=== PATIENT | female | born 1955 | race Caucasian/White ===

== ENCOUNTER → 2017-03-31 09:05 | Outpatient (CLI) | payer BC, SELFPAY ==
[2017-03-31 10:56] LABS: Albumin, Serum 3.5 g/dL (3.4-5.0); BUN 15 mg/dL (7-18); BUN/Creat Ratio 12.7 RATIO (10-20); Calcium,Total 8.6 mg/dL (8.5-10.1); Chloride 106 mmol/L (98-107); Creatinine, Serum 1.18 mg/dL (0.55-1.02); EST Glomerular Filtration Rate 50 mL/min (>60); Est Glom Filt Rate - Afr Amer 60 mL/min (>60); Glucose 80 mg/dL (70-110); Phosphorus 3.4 mg/dL (2.5-4.9); Sodium Level 140 mmol/L (136-145)
[2017-03-31 10:58] LABS: PTHIN 109.4 pg/mL (18.4-80.1)
[2017-03-31 11:49] LABS: 24 Hour Urine Protein 198.4 mg/24HR (<150 MG/24HR); 24HR. UA Prot. Total Volume 1725 mL; 24HR. Urine Creatinine 1.22 g/24 HR (0.70-1.90); Urine Protein (24 Hour) 11.5 mg/dL (<11.9)
== END ==
DX: I12.9 Hypertensive chronic kidney disease with stage 1 through stage 4 chronic kidney disease, or unspecified chronic kidney disease (principal); N18.3 Chronic kidney disease, stage 3 (moderate)
CPT/HCPCS: 36415; 80069; 82330; 82570; 83970; 84156

== ENCOUNTER → 2017-06-17 10:48 | Outpatient (CLI) | payer BC, SELFPAY | DX: I12.9 Hypertensive chronic kidney disease with stage 1 through stage 4 chronic kidney disease, or unspecified chronic kidney disease (principal); N18.3 Chronic kidney disease, stage 3 (moderate) ==

== ENCOUNTER 2017-06-30 11:30 | Outpatient (RCR) | payer BC, SELFPAY ==
--- NOTE | 2017-03-03 16:56 | HP.PTEVAL_ITS ---
Patient's Visit Information SYED HARDWICK is a 61 year old F referred to Physical Therapy by Out of Town Doctor with a diagnosis of Weakness. Date of Evaluation: 03/03/17 Physical Therapist: Lori Jamison - Visit Plan Frequency: 2x /Week Duration: 6 Weeks Plan: Focus on LE and core s/s - Subjective Subjective: Patient reports that she was in the hospital for about 3 weeks at the end of Jan- she was in the ICU for 10 days with kidney issues which led to sepsis. She was very sick and for awhile her MD didn't know if she was going to pull through. She feels now that she is very weak and has a hard to getting all of her strength and endurance back. She is trying to walk as much as she can but can hardly get her work done. Her MD wants her back in therapy. She is having knee and back pain that is ongoing. She is planning to have a total knee replacement put in her right knee EMMANUEL. She is going to have a team of md' s taking over her care through her primary care including a satellite installation technician. He plans a 24 hour urine study dominick will help to process why she is having so many problems. - Objective Posture: FH, RS, Increased kyphosis. Gait: antalgic- uses straight cane- slow agatha and poor heel/toe pattern. SLS: unable but can WS. Stairs: non recip with 2 HR. HR/TR: able. ROM: WFL. Strength: Ankle: 5/5, Knee: 4+/5. Hip: 4-/ 5 throughout Core: poor. Endurance: poor - Goals Goal 1:: Patient will be I with HEP and progression Goal Time Frame: 4-6 Weeks Goal 2:: Patient will ambualte >300 feet with a normalized gait pattern and LRD Goal Time Frame: 4-6 Weeks Goal 3:: Patient will asc/desc 8 recip with 1 HR Goal Time Frame: 4-6 Weeks Goal 4:: Patient willd emo 4+/5 throughout Goal Time Frame: 4-6 Weeks Goal 5:: Patient will maitain proper posture t/o tx session to demo increased core s/s Goal Time Frame: 4-6 Weeks - Rehabilitation Potential Physical Therapy Diagnosis: patient presents with hypomobility- she has debility following hospital stay Rehabilitation Potential: Fair - Anticipated Interventions Patient/Client Instruction: Educate patient on: Benefits of Fitness Program For the Purpose of:: To increase tolerance to activity/condition/position Therapeutic Exercise to Include: Strength training, Endurance training, Balance training, Coordination, Agility training, Body mechanics, Postural training, Flexibilty training, Gait and locomotor training, Dynamic Lumbar Stabilization, Scapular Strength/Stabilization For the Purpose of:: To improve muscle performance and motor function Thank you for the opportunity to evaluate your patient. For Medicare and Medicare HMO plans, please review the plan of care and approve it. It will need to be FAXED BACK to us at [phone] for Medicare purposes. Please let me know if there are questions or concerns regarding this plan of care. Physician Signature: Date:
--- NOTE | 2017-06-30 11:44 | HP.PTDCSUM_ITS ---
HP - PT D/C Summary It has been my pleasure to treat SYED HARDWICK under orders from DAVID CALIXTO, for the diagnosis of Weakness for a total of 15 visit(s). Discharge Date: Please see the following information for a summary of their discharge status. - Subjective Subjective: End of Apr Synvist injections- can now walk without a cane and has less pain. She fell on Wednesday- went to see Dr. Hermosillo and he is fitting her for a brace- [employer] will get her the brace. She will have a cortisone shot in July then she can get another shot October. Tested herself at [employer] [facility]- the next day [employer] then next day at [facility] then could not walk for 2 days. Swollen and painful. Uses the compression 1-2x a day due to lymphedema, pain and knee in general. 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 - Pain RIGHT KNEE Pain Intensity (Out of 10): 5 - Objective Objective/Function: Posture: Fh, RS. Gait: no AD- mild deviation with decreased stride length and increased DELIA. SLS: WS with UE A. HR/TR: able. ROM: wnl. Strength: 4+/5 throughout Core: fair plus - Goals Goal 1:: Patient will be I with HEP and progression Goal Progress: Goal Met Goal 2:: Patient will ambualte >300 feet with a normalized gait pattern and LRD Goal Progress: Progressing Goal 3:: Patient will asc/desc 8 recip with 1 HR Goal Progress: Progressing Goal 4:: Patient willd emo 4+/5 throughout Goal Progress: Goal Met Goal 5:: Patient will maitain proper posture t/o tx session to demo increased core s/s Goal Progress: Progressing - Plan Plan: Discharge to I HEP- gym and home - D/C Information If there are questions or concerns regarding this patient's physical therapy, please feel free to call me at [phone]. Thank you for the referral of this patient. Sincerely, Lori Jamison
== END 2017-06-30 19:00 | disposition home or self-care (01) ==
LOC: PT 11:30
DX: R53.1 Weakness (principal)
CPT/HCPCS: 97110; 97162; 97530

== ENCOUNTER 2018-11-21 09:00 | Outpatient (RCR) | payer BC, SELFPAY ==
--- NOTE | 2018-11-21 12:55 | HP.PTEVAL_ITS ---
Patient's Visit Information SYED HARDWICK is a 63 year old F referred to Physical Therapy by Agapito Anderson MD with a diagnosis of Low back pain. Date of Evaluation: 11/21/18 Physical Therapist: Ollie Kelly DPT - Visit Plan Frequency: 2x /Week Duration: 4 Weeks Plan: Start with extension exercises, piriformis stretching, hip flexor stretching, Add in core stability exercises in neutral spine - Subjective Findings: Pt. 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 Pt. reprots picking up her granddaughter resultsing in low back pain on left side ~6 weeks ago. Her back pain was bad for ~2 days then resulted in thigh pain. Pt. reports increased pain with pressure to this region. She reports no longer having any back pain. Pt. is concerned as her is having surgery next week on his back and she is having a R TKA in Nov. Pt. reports having difficulty sleeping as well. Pt. reports anything that touches her L leg it is very tender. Pt. is hopefu to reduce symptoms in order to get back to all recreational and household activities without limitations. - Pain L thigh Pain Intensity (Out of 10): 6 Pain Intensity Range: 4, 10 - Objective POSTURE: Pt. has flexed posture in stance. Overal slouched positoning. Posteror pelvic tilt postioning. Pt. has normal lateral wt. shfiting. PALPATION: PT. has increased tenderness at L piriformis, L erector spine. Pt. also has increased sensitivity througout L thigh (medial aspect) and L calf (medial aspect). NEURO: normal DTR bilaterally, but has hypersensitity to ligth touch of medial aspect of L LE. ROM: Lumbar Spine: flexion min/nil loss increase NW, ext min /mod loss decrease better, SB min loss NE bilat, rotation min loss bilat NE. Pt. has normal HS length bilaterally, tight L hip ER. Normal rest of hip ROM. MMT: RLE- ankle 5/5 throughout; knee- ext 4/5, flexion 4/5; hip- flexon 4/5, abd 4/5, ext 4/5. LLE- ankle 5/5 throughout; knee- ext 5/5, flexion 5/5; hip- flexion 4/5, abd 4/5, ext 4/5. No pain with all testing. GAIT: Pt. ambulates with SPC due to R knee pain and feeling of imbalance. Pt. has increased lateral sway and flexed posture with gait. - Special Tests L/S Slump test left side: Negative L/S Slump test right side: Negative L/S Left Straight Leg Raise: Negative L/S Right Straight Leg Raise: Negative L/S Left Femoral Nerve Tension: Positive L/S Right Femoral Nerve Tension: Negative Lumbar Standing: Flexion - Mechanical Response: No effect Lumbar Standing: Flexion - Symptoms During Testing: Increases Lumbar Standing: Flexion - Symptoms After Testing: No worse Lumbar Standing: Extension - Mechanical Response: No effect Lumbar Standing: Extension - Symptoms During Testing: Decreases Lumbar Standing: Extension - Symptoms After Testing: Better Lumbar Standing: Right Side Glides - Mechanical Response: No effect Lumbar Standing: Right Side [place] - Symptoms During Testing: No effect Lumbar Standing: Right Side [place] - Symptoms After Testing: No effect Lumbar Standing: Left Side [place] - Mechanical Response: No effect Lumbar Standing: Left Side [place] - Symptoms During Testing: No effect Lumbar Standing: Left Side [place] - Symptoms After Testing: No effect - Goals Goal 1:: Pt. to be I with HEP. Goal Time Frame: 4-6 Weeks Goal 2:: Pt. to have increased lumbar ROM by 25% in all directions without increase in symptoms. Goal Time Frame: 4-6 Weeks Goal 3:: Pt. to have reduced L LE hypersensity by 50%. Goal Time Frame: 4-6 Weeks Goal 4:: Pt. to sleep without increase in symptoms. Goal Time Frame: 4-6 Weeks Goal 5:: Pt. to have increased core strength by 1/2 grade allowing for increased stability with all functional mobility. Goal Time Frame: 4-6 Weeks - Rehabilitation Potential Physical Therapy Diagnosis: Pt. has signs and symptoms consistent with radiating low back pain. Pt. had hypersensitivity in her L leg, especially the medial aspected. Pt. did have a redction in symptoms with extension exercises. Rehabilitation Potential: Good - Anticipated Interventions Patient/Client Instruction: Educate patient on: Condition, Plan of Care, Risk Factors, Benefits of Fitness Program For the Purpose of:: To foster healthy habits, To improve decision making, To facilitate caregiver knowledge, To improve self management, To prevent re- injury, To improve ability to perform tasks related to life management Therapeutic Exercise to Include: Strength training, Balance training, Body mechanics, Postural training, Flexibilty training, Active ROM For the Purpose of:: To decrease pain, To increase ROM, To improve muscle p erformance and motor function, To improve ability to perform ADL's, To increase tolerance to activity/condition/position, To decrease level of supervision to perform tasks, To improve ability of physical actions for home/community/work/leisure, To improve gait and locomotor functions, To improve health of tissue, To increase flexibility/ROM IF ES: Yes Cryotherapy (ice pack, ice massage): Yes For the Purpose of:: To decrease pain, To decrease swelling/inflammation, To increase ROM, To improve nutrient delivery to tissue Thank you for the opportunity to evaluate your patient. For Medicare and Medicare HMO plans, please review the plan of care and approve it. It will need to be FAXED BACK to us at [phone] for Medicare purposes. For Medicare only, by signing this I certify the plan of care. Please let me know if there are questions or concerns regarding this plan of care. Physician Signature: Date:
--- NOTE | 2019-01-02 09:12 | HP.PTDCNRP_ITS ---
HP - Discharge Summary (1) - Patient Information SYED HARDWICK was seen in my office for initial evaluation on 11/21/18. The following Plan of Care was established for this patient: Initial Frequency: 2x /Week Initial Duration: 4 Weeks - Anticipated Interventions Patient/Client Instruction: Educate patient on: Condition, Plan of Care, Risk Factors, Benefits of Fitness Program For the Purpose of:: To foster healthy habits, To improve decision making, To facilitate caregiver knowledge, To improve self management, To prevent re- injury, To improve ability to perform tasks related to life management Therapeutic Exercise to Include: Strength training, Balance training, Body mechanics, Postural training, Flexibilty training, Active ROM For the Purpose of:: To decrease pain, To increase ROM, To improve muscle performance and motor function, To improve ability to perform ADL's, To increase tolerance to activity/condition/position, To decrease level of supervision to perform tasks, To improve ability of physical actions for home/community/work/leisure, To improve gait and locomotor functions, To improve health of tissue, To increase flexibility/ROM IF ES: Yes Cryotherapy (ice pack, ice massage): Yes For the Purpose of:: To decrease pain, To decrease swelling/inflammation, To increase ROM, To improve nutrient delivery to tissue This patient was last seen in our office 11/21/18. Pertinent comments regarding their Physical therapy will appear below: Pt. was seen for her initial evaluation for L sided low back pain. Pt. was no longer having pain and has been doing well with her exercises. Pt. will be DC from PT at this point in time. At this point I will be discontinuing this patient from physical therapy. I would be happy to see this patient again in the future if found appropriate by the physician. Thank you! Ollie Kelly, YOUT
== END 2018-11-21 19:00 | disposition home or self-care (01) ==
LOC: PT 09:00
PROVIDERS: Family Provider Family Medicine; PCP Family Medicine; Referring Provider Family Medicine; Visit Provider Family Medicine
DX: M79.605 Pain in left leg (principal); M54.16 Radiculopathy, lumbar region; E66.01 Morbid (severe) obesity due to excess calories; Z68.41 Body mass index [BMI] 40.0-44.9, adult
CPT/HCPCS: 97161

== ENCOUNTER 2019-07-05 10:00 | Outpatient (RCR) | payer BC, SELFPAY ==
--- NOTE | 2019-01-23 10:31 | HP.PTEVAL_ITS ---
Patient's Visit Information SYED HARDWICK is a 63 year old F referred to Physical Therapy by Sanya Mora with a diagnosis of R TKA. Date of Evaluation: 01/23/19 Physical Therapist: Ollie Kelly DPT - Visit Plan Frequency: 3x /Week Duration: 4 Weeks Plan: Start wwith R knee ROM, focus on TKE and progressing flexion. Gait progression, functional movments. Add in light isometric strengthening progressing as tolerated. - Subjective Findings: Pt. is here today for her initial evaluation with diagnosis of R TKA. DOS: 01/19/19. Pt reports being okay, but is still experiencing high levels of pain, but as expected. Pt. arrives today without her compression stockings, but reports wearing them x21+ hours per day. Pt. denies N/T, no calf pain, no blurred vision. Pt. reprots she is getting around her house well with her walker. Pt. is sleeping in her bed with good tolerance. She is doing her exercises x3 per day. Pt. is using a FWW properly. Pt. is to follow up with her physician in 4 weeks. Pt. is hopeful to get back to all recreational and walking without limitations. - Pain R knee Pain Intensity (Out of 10): 8 Pain Intensity Range: 5, 9 - Objective POSTURE: Pt. has flexed posture, increased wt. through her UEs on ther walker, lacking slight TKE on RLE in stance. PALPATION: Pt. has healing incision. He bandage. No signs of draining. Pt. has increased redness around her incision, but as expected. She does have marked edema throughout R knee, non pitting. Pt. has no pain along calf, negative homans sign. NEURO: Pt. has nromal sensation to bilateral LEs. Pt. has 2+ achilles DTR bilaterally. ROM: L knee: 0-0-115deg. R knee 0-8-86deg. Pt. reprots pain at end ranges of motion. pt. has tight HS bilaterally. MMT: LLE- 5/5 throughout ankle and knee; hip- 4/5 throughout. RLE- ankle 5/5 throughout; knee- SLR with slight extensor lag, patient is able to complete LAQ with close to full ROM; knee flexion 4/5; hip- 4-/5 throughout. Core strength- poor. GAIT: Pt. ambulates with FWW with decreased step length bilaterally. Lacks TKE on RLE. Heavy use of FWW, especially during R stance phase. STAIRS: Step to pattern laoding LLE only. - Goals Goal 1:: Pt. to be I with HEP. Goal Time Frame: 4-6 Weeks Goal 2:: Pt. to have increased R knee ROM to 0-0-120deg without increase increase in symptoms. Goal Time Frame: 4-6 Weeks Goal 3:: Pt. to ambulate without AD uinlimited distances with normal gait pattern without increase in symptoms. Goal Time Frame: 4-6 Weeks Goal 4:: Pt. to sleep throughout the night without increase in symptoms. Goal Time Frame: 4-6 Weeks Goal 5:: Pt. to negotiate 1 flight of steps with 1 HR with reciprocal pattern without increase in symptoms. Goal Time Frame: 4-6 Weeks Goal 6:: Pt. to have atleast 4+/5 strength in RLE. Goal Time Frame: 4-6 Weeks - Rehabilitation Potential Physical Therapy Diagnosis: Pt. has signs and symptoms consistent with R TKA. Pt. has subsequent increased edema, hypomobility, weakness, increased pain, and difficulty with walking. Pt. would benefit from PT to address above limitations progress back to all walking and recreational activities without limitations. Rehabilitation Potential: Excellent - Anticipated Interventions Patient/Client Instruction: Educate patient on: Condition, Plan of Care, Risk Factors, Benefits of Fitness Program For the Purpose of:: To improve health and function, To foster healthy habits, To improve decision making, To facilitate caregiver knowledge, To improve self management, To prevent re-injury, To improve ability to perform tasks related to life management, To improve tolerance to ADL's Therapeutic Exercise to Include: Strength training, Power training, Body mechanics, Postural training, Flexibilty training, Gait and locomotor training, Passive ROM, Active ROM For the Purpose of:: To decrease pain, To decrease swelling/inflammation, To increase ROM, To improve nutrient delivery to tissue, To increase oxygenation perfusion, To improve muscle performance and motor function, To improve ability to perform ADL's, To improve gait and locomotor functions, To improve health of tissue, To decrease soft tissue restriction Cryotherapy (ice pack, ice massage): Yes Vasopneumatic device: Yes For the Purpose of:: To decrease pain, To decrease swelling/inflammation Thank you for the opportunity to evaluate your patient. For Medicare and Medicare HMO plans, please review the plan of care and approve it. It will need to be FAXED BACK to us at [phone] for Medicare purposes. For Medicare only, by signing this I certify the plan of care. Please let me know if there are questions or concerns regarding this plan of care. Physician Signature: Date:
--- NOTE | 2019-02-20 08:23 | HP.PTREVAL ---
Sanya Mora, It has been my pleasure to treat SYED HARDWICK over the last 11 visits for R TKA. Please see the progress note below for an update on the physical therapy plan of care! Subjective: Pt. reports I am feeling a lot better, compared to what I was. Pt. has started taking prednisone and is doign better. She reports increased tolerance to exercises and stretching. Objective/Function: ROM: AROM 0-4-104deg. PROM 0-2-108deg. Pt. has increased pain and tightness at end ranges of motion. MMT: generally 4/5 throughout. PT. has improved scar healing. No signs of infection. Worked on walking with cane this date. Pt. did very well. Pt. is starting to progress better now that she is tolerating HEP and stretching better. Pt. to follow up with physician next week. Plan Plan: Send Progress note with pt next visit. Continue with R knee ROM, focus on TKE and progressing flexion. Gait progression, functional movments. Add in light isometric strengthening progressing as tolerated. Goals Goal 1:: Pt. to be I with HEP. Goal Time Frame: 4-6 Weeks Goal 2:: Pt. to have increased R knee ROM to 0-0-120deg without increase increase in symptoms. Goal Time Frame: 4-6 Weeks Goal 3:: Pt. to ambulate without AD uinlimited distances with normal gait pattern without increase in symptoms. Goal Time Frame: 4-6 Weeks Goal 4:: Pt. to sleep throughout the night without increase in symptoms. Goal Time Frame: 4-6 Weeks Goal 5:: Pt. to negotiate 1 flight of steps with 1 HR with reciprocal pattern without increase in symptoms. Goal Time Frame: 4-6 Weeks Goal 6:: Pt. to have atleast 4+/5 strength in RLE. Goal Time Frame: 4-6 Weeks Anticipated Interventions Patient/Client Instruction: Educate patient on: Condition, Plan of Care, Risk Factors, Benefits of Fitness Program For the Purpose of:: To improve health and function, To foster healthy habits, To improve decision making, To facilitate caregiver knowledge, To improve self management, To prevent re-injury, To improve ability to perform tasks related to life management, To improve tolerance to ADL's Therapeutic Exercise to Include: Strength training, Power training, Body mechanics, Postural training, Flexibilty training, Gait and locomotor training, Passive ROM, Active ROM For the Purpose of:: To decrease pain, To decrease swelling/inflammation, To increase ROM, To improve nutrient delivery to tissue, To increase oxygenation perfusion, To improve muscle performance and motor function, To improve ability to perform ADL's, To improve gait and locomotor functions, To improve health of tissue, To decrease soft tissue restriction Cryotherapy (ice pack, ice massage): Yes Vasopneumatic device: Yes For the Purpose of:: To decrease pain, To decrease swelling/inflammation Please do not hesitate to contact me at [phone] by phone or if you have questions or concerns regarding this new plan of care! Sincerely, YOU ReneT
--- NOTE | 2019-03-20 09:57 | HP.PTREVAL_ITS ---
Sanya Mora, It has been my pleasure to treat SYED HARDWICK over the last 17 visits for R TKA. Please see the progress note below for an update on the physical therapy plan of care! Subjective: Pt. reports she is doing much, much better. Pt. is now walking without cane, and overall getting around much better. Pt. reports ahving 2/10 pain today I just feel really stiff today.' She reports beign HEP compliant without issues. Pt. is getting back to some normal daily activities, but still has to take frequent breaks due to fatigue and soreness. Objective/Function: Re assessment x15' ROM: Pt. has 0-0-104deg today. Pt. is improving with flexion, but I would like her to have a bit more allowing for increased ease with functional activities. MMT: 4+/5 throughout RLE. APPEARANCE: Pt. does have increased scarring superior to patella, but has improve with patient consistent scar massage. I would like her to work on knee flexion ROM, stability with stairs and increasing hip stability allowing for increased stability with gait and functional mobility. 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 I talked with her about medial joint pain and healing process after surgery. Increasing hip ER will add stress to Medial joint line, especial if she is limited with hip ER while attempting to tie her shoes. Plan Plan: Cont. x2 per week for 2-3 weeks working on flexion, gait/stairs, RLE stre ngthening (hip strengthening). Functional strengthening/mobility. Goals Goal 1:: Pt. to be I with HEP. Goal Time Frame: 4-6 Weeks Goal Progress: Goal Met Goal 2:: Pt. to have increased R knee ROM to 0-0-120deg without increase increase in symptoms. Goal Time Frame: 4-6 Weeks Goal Progress: Progressing Goal 3:: Pt. to ambulate without AD uinlimited distances with normal gait pattern without increase in symptoms. Goal Time Frame: 4-6 Weeks Goal Progress: Progressing Goal 4:: Pt. to sleep throughout the night without increase in symptoms. Goal Time Frame: 4-6 Weeks Goal Progress: Goal Met Goal 5:: Pt. to negotiate 1 flight of steps with 1 HR with reciprocal pattern without increase in symptoms. Goal Time Frame: 4-6 Weeks Goal Progress: Progressing Goal 6:: Pt. to have atleast 4+/5 strength in RLE. Goal Time Frame: 4-6 Weeks Goal Progress: Progressing Anticipated Interventions Patient/Client Instruction: Educate patient on: Condition, Plan of Care, Risk Factors, Benefits of Fitness Program For the Purpose of:: To improve health and function, To foster healthy habits, To improve decision making, To facilitate caregiver knowledge, To improve self management, To prevent re-injury, To improve ability to perform tasks related to life management, To improve tolerance to ADL's Therapeutic Exercise to Include: Strength training, Power training, Body mechanics, Postural training, Flexibilty training, Gait and locomotor training, Passive ROM, Active ROM For the Purpose of:: To decrease pain, To decrease swelling/inflammation, To increase ROM, To improve nutrient delivery to tissue, To increase oxygenation perfusion, To improve muscle performance and motor function, To improve ability to perform ADL's, To improve gait and locomotor functions, To improve health of tissue, To decrease soft tissue restriction Cryotherapy (ice pack, ice massage): Yes Vasopneumatic device: Yes For the Purpose of:: To decrease pain, To decrease swelling/inflammation Please do not hesitate to contact me at [phone] by phone or if you have questions or concerns regarding this new plan of care! Sincerely, Ollie Kelly DPT
--- NOTE | 2019-04-24 12:53 | HP.PTREVAL ---
Sanya Mora, It has been my pleasure to treat SYED HARDWICK over the last 27 visits for R TKA. Please see the progress note below for an update on the physical therapy plan of care! Subjective: Pt. reprots overall her knee is doing much better. Pt. reprots having some difficulty with balance adn walking pattern. Pt. reprots talking to her PCP who recommended that she continue with PT with focus on balance. Objective/Function: ROM 0-0-115deg. MMT: 5/5 throuhgout, except hip abduction 4/5. Bilateral ankle weakness 4+/5 throughout. FGA- 22/30 difficulty with narrow DELIA and with eyes closes. She is close to being I with gym program for BLE strengthening. She is negotiating stairs with reciprocal pattern but difficult for eccentric lowering. Pt. is overall doing very well with her knee. Pt. did follow up with her PCP who would like her to work on balance now that her knee is doing better. Plan Plan: Extended POC x2 per week for 3 weeks with focus on indepedent program for gym with BLE strengthening. Add in balance/proprioception, SLS, eyes closed, dynamic balance exercises. Goals Goal 1:: Pt. to be I with HEP. Goal Time Frame: 4-6 Weeks Goal Progress: Goal Met Goal 2:: Pt. to have increased R knee ROM to 0-0-120deg without increase increase in symptoms. Goal Time Frame: 4-6 Weeks Goal Progress: Progressing Goal 3:: Pt. to ambulate without AD uinlimited distances with normal gait pattern without increase in symptoms. Goal Time Frame: 4-6 Weeks Goal Progress: Progressing Goal 4:: Pt. to sleep throughout the night without increase in symptoms. (NEW GOAL: 04/24/19- Patient to have increased FGA to 25/30 indicating reduced risk for future falls) Goal Time Frame: 4-6 Weeks Goal Progress: Progressing Goal 5:: Pt. to negotiate 1 flight of steps with 1 HR with reciprocal pattern without increase in symptoms. Goal Time Frame: 4-6 Weeks Goal Progress: Progressing Goal 6:: Pt. to have atleast 4+/5 strength in RLE. Goal Time Frame: 4-6 Weeks Goal Progress: Goal Met Anticipated Interventions Patient/Client Instruction: Educate patient on: Condition, Plan of Care, Risk Factors, Benefits of Fitness Program For the Purpose of:: To improve health and function, To foster healthy habits, To improve decision making, To facilitate caregiver knowledge, To improve self management, To prevent re-injury, To improve ability to perform tasks related to life management, To improve tolerance to ADL's Therapeutic Exercise to Include: Strength training, Power training, Body mechanics, Postural training, Flexibilty training, Gait and locomotor training, Passive ROM, Active ROM For the Purpose of:: To decrease pain, To decrease swelling/inflammation, To increase ROM, To improve nutrient delivery to tissue, To increase oxygenation perfusion, To improve muscle performance and motor function, To improve ability to perform ADL's, To improve gait and locomotor functions, To improve health of tissue, To decrease soft tissue restriction Cryotherapy (ice pack, ice massage): Yes Vasopneumatic device: Yes For the Purpose of:: To decrease pain, To decrease swelling/inflammation Please do not hesitate to contact me at [phone] by phone or if you have questions or concerns regarding this new plan of care! Sincerely, YOU ReneT
--- NOTE | 2019-06-30 09:28 | HP.PTREVAL ---
Sanya Mora, It has been my pleasure to treat SYED HARDWICK over the last 33 visits for R TKA. Please see the progress note below for an update on the physical therapy plan of care! Subjective: Pt. has been off of PT due to [place] virus. PT. reports that she feels like she has become stiff and feels like her balance has worsened. Pt. reports also being on 10mg of prednisone every other day by her PCP, which might be helping her symptoms. Objective/Function: Pt. is doing well with her R knee joint. ROM 0-0-113deg. Tenderness noted with end range fleixon and extension, she appears to have a component of tight/tender musculature of R quad. MMT: Pt. has good strength with MMT throughotu BLEs, she does have some mild functional strength weakness with descending steps. GAIT: Pt. is nicki to ambulate with normal pattern with good TKE and flexion during swing phase. Pt. does have some balance inconsistencies resulting in stepping stratagies to self correct balance. She does not want to use a cane. STAIRS: Pt.is able to complete with BHR with reciprocal pattern, mild icnrease in B knee pain with descending, noted functional weakness with controlled descent on LLE. BALANCE: FGA very challneged with eyes closed and narrow DELIA. Plan Plan: Pt. was off from PT due to pandemic. Pt. has been fairly sedentary since pandemic and has not been compliant with exercises. Pt. presents with descent strength, and fairly good ROM. Pt. is concerned about her balance and reports not feeling good with her stability. She is hopeful to increase functional strength and balance in order get to recreational walking. Pick back up with functional strengthening, Stability/balance on uneven surfaces, dynamic gait.. PRogress HEP. Goals Goal 1:: Pt. to be I with HEP. Goal Time Frame: 4-6 Weeks Goal Progress: Goal Met Goal 2:: Pt. to have increased R knee ROM to 0-0-120deg without increase increase in symptoms. Goal Time Frame: 4-6 Weeks Goal Progress: Progressing Goal 3:: Pt. to ambulate without AD uinlimited distances with normal gait pattern without increase in symptoms. Goal Time Frame: 4-6 Weeks Goal Progress: Goal Met Goal 4:: Pt. to sleep throughout the night without increase in symptoms. (NEW GOAL: 04/24/19- Patient to have increased FGA to 25/30 indicating reduced risk for future falls) Goal Time Frame: 4-6 Weeks Goal Progress: Progressing Goal 5:: Pt. to negotiate 1 flight of steps with 1 HR with reciprocal pattern without increase in symptoms. Goal Time Frame: 4-6 Weeks Goal Progress: Progressing Goal 6:: Pt. to have atleast 4+/5 strength in RLE. Goal Time Frame: 4-6 Weeks Goal Progress: Goal Met Anticipated Interventions Patient/Client Instruction: Educate patient on: Condition, Plan of Care, Risk Factors, Benefits of Fitness Program For the Purpose of:: To improve health and function, To foster healthy habits, To improve decision making, To facilitate caregiver knowledge, To improve self management, To prevent re-injury, To improve ability to perform tasks related to life management, To improve tolerance to ADL's Therapeutic Exercise to Include: Strength training, Power training, Body mechanics, Postural training, Flexibilty training, Gait and locomotor training, Passive ROM, Active ROM For the Purpose of:: To decrease pain, To decrease swelling/inflammation, To increase ROM, To improve nutrient delivery to tissue, To increase oxygenation perfusion, To improve muscle performance and motor function, To improve ability to perform ADL's, To improve gait and locomotor functions, To improve health of tissue, To decrease soft tissue restriction Cryotherapy (ice pack, ice massage): Yes Vasopneumatic device: Yes For the Purpose of:: To decrease pain, To decrease swelling/inflammation Please do not hesitate to contact me at [phone] by phone or if you have questions or concerns regarding this new plan of care! Sincerely, Ollie Kelly DPT
== END 2019-07-05 19:00 | disposition home or self-care (01) ==
LOC: PT 10:00
PROVIDERS: Family Provider Family Medicine; PCP Family Medicine; Referring Provider Orthopaedic Surgery; Visit Provider Orthopaedic Surgery
DX: M17.11 Unilateral primary osteoarthritis, right knee (principal); M25.561 Pain in right knee
CPT/HCPCS: 97110; 97140; 97161; 97164; 97530

== ENCOUNTER 2019-09-13 10:00 | Outpatient (RCR) | payer BC, SELFPAY ==
--- NOTE | 2019-09-20 10:41 | HP.PT.NRP ---
SYED HARDWICK was seen in my office for initial evaluation on . The following Plan of Care was established for this patient: Patient/Client Instruction: Educate patient on: Condition, Plan of Care, Risk Factors, Benefits of Fitness Program For the Purpose of:: To decrease pain, To increase ROM, To improve nutrient delivery to tissue, To improve gait and locomotor functions, To improve health of tissue, To decrease soft tissue restriction Therapeutic Exercise to Include: Strength training, Power training, Postural training, Flexibilty training, Gait and locomotor training, Neuromotor development, Passive ROM, Active ROM For the Purpose of:: To decrease pain, To decrease swelling/inflammation, To increase ROM, To improve nutrient delivery to tissue, To improve muscle performance and motor function, To improve ability to perform ADL's, To improve gait and locomotor functions, To improve health of tissue, To decrease soft tissue restriction, To increase flexibility/ROM, To improve endurance, To improve balance This patient was last seen in our office 09/13/19. Pertinent comments regarding their Physical therapy will appear below: Pt. will be DC from this case of PT this date. She is having her L knee arthroplasty and will be returning for that case. At this point I will be discontinuing this patient from physical therapy. I would be happy to see this patient again in the future if found appropriate by the physician. Thank you! Ollie Kelyl DPT
== END 2019-09-13 19:00 | disposition home or self-care (01) ==
LOC: PT 10:00
PROVIDERS: PCP Family Medicine; Referring Provider Orthopaedic Surgery; Visit Provider Orthopaedic Surgery
DX: M17.11 Unilateral primary osteoarthritis, right knee (principal); M25.561 Pain in right knee
CPT/HCPCS: 97110; 97112; 97530

== ENCOUNTER 2020-03-22 10:00 | Outpatient (RCR) | payer BC, SELFPAY ==
--- NOTE | 2019-09-20 15:12 | HP.PTEVAL_ITS ---
Patient's Visit Information SYED HARDWICK is a 64 year old F referred to Physical Therapy by Dr. Sanya Moar MD with a diagnosis of L TKA. Date of Evaluation: 09/20/19 Physical Therapist: Ollie Kelly DPT - Visit Plan Frequency: 2-3x /Week Duration: 4-6 Weeks Plan: Start with ROM, edema control and isometrics. Progress gait as tolerated. Once ROM has improved add in gentle strengthening including fuinctional strengthening. - Subjective Pt. is here today for her initial evaluation with diagnosis of L TKA. Pt. had her surgery on 09/15/19. Pt. reports doing well after her surgery. Pt. denies calf pain, no difficulty breathing, no changes in vision or fever. Surgery was performed in outpatient setting. Pt. has been doing light walking at home and working on straightening her leg. Pt. had her R knee replaced earlier this year. Pt. is walking with FWW this date. She is using compression stocking and medication as prescribed. Pt. is hipeful to increase her ROM and get back to all of her recreational activities without limitations. - Pain L knee Pain Intensity (Out of 10): 4 Pain Intensity Range: 2, 6 - Objective POSTURE: Pt. has general flexed posture in stance. Pt. has equal wt. shifting in stance, but does lack final degrees of terminal knee extension on LLE. PALAPTION: Pt. has healing incision of anterior knee. Pt. has no signs of infection. She does has a very sligth amount of drainage, but Serous in description. NEURO: Pt. has normal sensation and normal DTR of BLEs. Pt. has normal heel and toe raises. ROM: L knee 0-4-88deg. Pt. reports pain as limiting factor with end ranges of motions. Pt. has empty end feel, but is tight. MMT: Pt. has 3+/5 throughout LLE, Pt. is able to completed SLR of LLE with minimal lag. GAIT: Pt. is able to ambulate with FWW [place]. Pt. has decreased step length bilaterally. Pt. has decreased TKE during stance phase on LLE. Pt. lacks TKE on LLE. - Goals Goal 1:: LTG: Pt. to be I with HEP. Goal Time Frame: 6-8 Weeks Goal 2:: LTG: Pt. to have increased PROM of L knee to 0-0-120deg without limitations. Goal Time Frame: 4-6 Weeks Goal 3:: STG: Pt. to sleep throughout the night without increase in symptoms. Goal Time Frame: 2-4 Weeks Goal 4:: STG: Pt. to walk unlimited distances with FWW without increase in symptoms. Goal Time Frame: 4-6 Weeks Goal 5:: LTG: Pt. to ambulate unlimited distances without increase in symptoms with normal gait pattern. Goal Time Frame: 6-8 Weeks Goal 6:: LTG: Pt. to negotiate 1 flight of stairs with 1 HR with reciprocal pattern. Goal Time Frame: 6-8 Weeks - Rehabilitation Potential Physical Therapy Diagnosis: Pt. has signs and symptoms consistent with L TKA. Pt. has subsequent hypombility, increased pain, decreased stability with gait, and increased edema. Pt. would benefit from PT to address the above limitations,progressing back to all recreational activities without limitations. Rehabilitation Potential: Excellent - Anticipated Interventions Patient/Client Instruction: Educate patient on: Condition, Plan of Care, Risk Factors, Benefits of Fitness Program For the Purpose of:: To improve health and function, To foster healthy habits, To improve decision making, To facilitate caregiver knowledge, To improve self management, To prevent re-injury, To improve ability to perform tasks related to life management, To improve tolerance to ADL's Therapeutic Exercise to Include: Strength training, Power training, Endurance training, Balance training, Body mechanics, Postural training, Flexibilty training, Gait and locomotor training, Passive ROM, Active ROM For the Purpose of:: To decrease pain, To decrease swelling/inflammation, To increase ROM, To improve nutrient delivery to tissue, To increase oxygenation perfusion, To improve ability to perform ADL's, To increase tolerance to activity/condition/position, To improve performance and independence with ADL's, To decrease level of supervision to perform tasks, To improve ability of physical actions for home/community/work/leisure, To improve gait and locomotor functions, To improve health of tissue, To decrease soft tissue restriction, To improve endurance, To improve balance, To improve safety with gait IF ES: Yes Other electric stimulation: Yes Cryotherapy (ice pack, ice massage): Yes For the Purpose of:: To decrease pain, To decrease swelling/inflammation, To inc rease ROM, To improve nutrient delivery to tissue, To increase oxygenation perfusion Thank you for the opportunity to evaluate your patient. For Medicare and Medicare HMO plans, please review the plan of care and approve it. It will need to be FAXED BACK to us at [phone] for Medicare purposes. For Medicare only, by signing this I certify the plan of care. Please let me know if there are questions or concerns regarding this plan of care. Physician Signature: Date:
--- NOTE | 2019-10-16 09:52 | HP.PTREVAL ---
Dr. Sanya Mora MD, It has been my pleasure to treat SYED HARDWICK over the last 7 visits for L TKA. Please see the progress note below for an update on the physical therapy plan of care! Subjective: Pt. reports overall doing well. Pt. arrives with SPC today. Pt. reports minimal pain in her L knee. 06/15 today, stiff in mornings Objective/Function: ROM: AROM: 0-0-110deg. PROM 0-0-115deg. MMT: 4+/5 throughout. GAIT: Pt. ambulates with a SPC. Pt. has reduced tempo, but good knee flexion and extension during appropriate stages. STAIRS: Pt. is managing steps wtih 2 HR with step to pattern. Pt. is able to negotiate reciprocally, but has difficulty descending. Pt. would benefit from continued PT working on ROM end ranges and progressing functional strengthening. Plan Plan: Cont. to POC. PT. to follow up with physician next week. Goals Goal 1:: LTG: Pt. to be I with HEP. Goal Time Frame: 6-8 Weeks Goal Progress: Progressing Goal 2:: LTG: Pt. to have increased PROM of L knee to 0-0-120deg without limitations. Goal Time Frame: 4-6 Weeks Goal Progress: Progressing Goal 3:: STG: Pt. to sleep throughout the night without increase in symptoms. Goal Time Frame: 2-4 Weeks Goal Progress: Progressing Goal 4:: STG: Pt. to walk unlimited distances with FWW without increase in symptoms. Goal Time Frame: 4-6 Weeks Goal Progress: Progressing Goal 5:: LTG: Pt. to ambulate unlimited distances without increase in symptoms with normal gait pattern. Goal Time Frame: 6-8 Weeks Goal Progress: Progressing Goal 6:: LTG: Pt. to negotiate 1 flight of stairs with 1 HR with reciprocal pattern. Goal Time Frame: 6-8 Weeks Goal Progress: Progressing Anticipated Interventions Patient/Client Instruction: Educate patient on: Condition, Plan of Care, Risk Factors, Benefits of Fitness Program For the Purpose of:: To improve health and function, To foster healthy habits, To improve decision making, To facilitate caregiver knowledge, To improve self management, To prevent re-injury, To improve ability to perform tasks related to life management, To improve tolerance to ADL's Therapeutic Exercise to Include: Strength training, Power training, Endurance training, Balance training, Body mechanics, Postural training, Flexibilty training, Gait and locomotor training, Passive ROM, Active ROM For the Purpose of:: To decrease pain, To decrease swelling/inflammation, To increase ROM, To improve nutrient delivery to tissue, To increase oxygenation perfusion, To improve ability to perform ADL's, To increase tolerance to activity/condition/position, To improve performance and independence with ADL's, To decrease level of supervision to perform tasks, To improve ability of physical actions for home/community/work/leisure, To improve gait and locomotor functions, To improve health of tissue, To decrease soft tissue restriction, To improve endurance, To improve balance, To improve safety with gait IF ES: Yes Other electric stimulation: Yes Cryotherapy (ice pack, ice massage): Yes For the Purpose of:: To decrease pain, To decrease swelling/inflammation, To increase ROM, To improve nutrient delivery to tissue, To increase oxygenation perfusion Please do not hesitate to contact me at [phone] by phone or if you have questions or concerns regarding this new plan of care! Sincerely, YOU ReneT
== END 2020-03-22 19:00 | disposition home or self-care (01) ==
LOC: PT 10:00
PROVIDERS: PCP Family Medicine; Referring Provider Orthopaedic Surgery; Visit Provider Orthopaedic Surgery
DX: Z96.651 Presence of right artificial knee joint (principal)
CPT/HCPCS: 97110; 97140; 97161; 97164; 97530

== ENCOUNTER 2020-05-03 10:00 | Outpatient (RCR) | payer BC, SELFPAY ==
--- NOTE | 2020-03-29 09:05 | HP.PTREVAL ---
Dr. Agapito Anderson MD, It has been my pleasure to treat SYED HARDWICK over the last 1 visits for BLE weakness and imbalance. Please see the progress note below for an update on the physical therapy plan of care! Subjective: Changing medical Vnumber this date. I recieved another order from Dr. Agapito Dinh for continued PT with focus on BLE strengthening and balance. She is still having trouble with her L lateral leg pain, this appears to be more associated with IT band symptoms and hip weakness rather than her knee it self. Objective/Function: I am transfering her goals and information to a new medical number this date. I do expect her to continue with PT as the POC. SHe has been c/o latearl L knee pain and hip pain with mobility, but has been improving. Plan Plan: I plan to continue to she her based on current POC with focus on balance and BLE strenthening progressing to independent gym program. Goals Goal 1:: LTG: Pt. to be I with HEP for BLE and balance with progression to independent gym program. Goal Time Frame: 4-6 Weeks Goal Progress: Progressing Goal 2:: LTG: Pt. to ambulate with single point cane vs no AD unlimited distances with 0-2/10 pain in LLE. Goal Time Frame: 4-6 Weeks Goal Progress: Progressing Goal 3:: LTG: BLE strength increased to 5/5 throughout. Goal Time Frame: 4-6 Weeks Goal Progress: Progressing Goal 4:: LTG: Pt. to have increased FGA to 21/30 indicating reduced risk for future falls to increased overall functional balance. Goal Time Frame: 4-6 Weeks Goal Progress: Progressing Anticipated Interventions Patient/Client Instruction: Educate patient on: Condition, Plan of Care, Risk Factors, Benefits of Fitness Program For the Purpose of:: To facilitate caregiver knowledge, To improve self management, To prevent re-injury, To improve ability to perform tasks related to life management, To improve tolerance to ADL's Therapeutic Exercise to Include: Strength training, Power training, Endurance training, Body mechanics, Postural training, Flexibilty training, Gait and locomotor training, Passive ROM, Active ROM For the Purpose of:: To decrease pain, To decrease swelling/inflammation, To increase ROM, To improve nutrient delivery to tissue, To increase oxygenation perfusion, To improve muscle performance and motor function, To decrease level of supervision to perform tasks, To improve ability of physical actions for home/community/work/leisure, To improve gait and locomotor functions, To improve health of tissue, To decrease soft tissue restriction, To increase flexibility/ROM Cryotherapy (ice pack, ice massage): Yes Thermo therapy (hot pack): Yes For the Purpose of:: To decrease pain, To decrease swelling/inflammation, To increase ROM, To improve nutrient delivery to tissue Please do not hesitate to contact me at [phone] by phone or if you have questions or concerns regarding this new plan of care! Sincerely, YOU ReneT
--- NOTE | 2020-05-03 16:22 | HP.PTDCSUM ---
It has been my pleasure to treat SYED HARDWICK referred by Dr. Agapito Anderson MD, with the diagnosis of BLE weakness and imbalance for a total of 8 visit(s). Discharge Date: 05/03/20 Please see the following information for a summary of their discharge status. Subjective: Syed reports being 90% better overall. She arrives walking with a single point cane without much limitation today. She reports being independent with her gym and HEP. Pt. has beening working hard at home. L knee Pain Intensity (Out of 10): 0 right knee Pain Intensity (Out of 10): 0 % Improvement: 90 Objective/Function: Pt. is independent with gym and HEP without issues. MMT: 5/5 BLE strength without reports of increased pain. Pt. does have some lateral LLE soreness at times, but has improved. FGA . GAIT: Pt. is ambulating without AD wtih decent pattern, 2/10 pain in L knee with walking, but is overall improving. Goal 1:: LTG: Pt. to be I with HEP for BLE and balance with progression to independent gym program. Goal Progress: Goal Met Goal 2:: LTG: Pt. to ambulate with single point cane vs no AD unlimited distances with 0-2/10 pain in LLE. Goal Progress: Goal Met Goal 3:: LTG: BLE strength increased to 5/5 throughout. Goal Progress: Goal Met Goal 4:: LTG: Pt. to have increased FGA to /30 indicating reduced risk for future falls to increased overall functional balance. Goal Progress: Goal Met Plan: DC to HEP at this point in time. Discharge Comments: Pt. has met all of her goals with PT. She is doing well. She has improved strength, she is walking without AD and has improved balance as seen in improved FGA. Pt. will be DC to HEP and gym exercises at this point in time. Handouts given to increase carry over. If there are questions or concerns regarding this patient's physical therapy, please feel free to call me at [phone]. Thank you for the referral of this patient. Sincerely, Ollie Kelly DPT
== END 2020-05-03 19:00 | disposition home or self-care (01) ==
LOC: PT 10:00
PROVIDERS: PCP Family Medicine; Referring Provider Family Medicine; Visit Provider Family Medicine
DX: Z47.1 Aftercare following joint replacement surgery (principal); Z96.652 Presence of left artificial knee joint; M17.12 Unilateral primary osteoarthritis, left knee
CPT/HCPCS: 97110; 97140; 97164

== ENCOUNTER 2022-02-13 08:00 | Outpatient (RCR) | payer MEDICARE, SELFPAY ==
--- NOTE | 2022-01-05 08:52 | HP.PTEVAL ---
Patient's Visit Information SYED HARDWICK is a 66 year old F referred to Physical Therapy by Dr. Agapito Anderson MD with a diagnosis of L artificial knee joint with need for quad and hamstring strengthening. Date of Evaluation: 01/02/22 Physical Therapist: Ollie Kelly DPT - Visit Plan Frequency: 2x /Week Duration: 6 Weeks Plan: Start with balance exercises with eyes open/closed and changes in DELIA. Progress this to I HEP. Add in gym strengthening exercises of BLEs with goal of progressing to I gym program. - Subjective Pt. is here today for her initial evaluation with diagnosis of presence of L artificial knee joint with need for quad and hamstring strengthening. Pt. has her L knee replaced in 2020. Pt. reports overall doing well, with some achiness. Pt reports more recent orthostatic hypotension issues. Pt. is eager to get back into gym strengthening as she has felt a little weaker recently. She also reports falling 3 times in the past few months. Pt. 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 She would like to increase her B LE strength, reduce risk for falls and progress back to [facility] gym program. - Pain L knee Pain Intensity (Out of 10): 0 Pain Intensity Range: 0, 1 - Objective POSTURE: Pt. has slight flexed posture in stance. Normal DELIA in stance. PALPATION: No issues with palpation of BLEs. NEURO: Pt. has normal sensation to light and sharp touch. Pt. is able to rise on heels and toes without issues. ROM: R knee: 0-0-112deg. L knee 0-0-110deg. Pt. had normal HS ROM as well. MMT: ankle 5/5 throughout bilaterally. L knee: ext 16.1#, flexion: 18.8#; hip: flexion: 22.9#, abd 28.1#. RLE: ext 17.8#, flexion: 29.1#; hip: flexion 28.8#, abd: 28.9#. GAIT: Pt. ambulates without AD. Pt. does have increased lateral sway, but not hip drop. Pt. has slight decrease in B step length as well. STAIRS: overall fairly normal with use of 2 HR. CATSIB: on balance machine: Patient was in normal range for normal DELIA with eyes open, but was below average for the other 3 three. She does struggle with eyes closed positioning - Balance/Special Test Scores Functional Gait Assessment Score: 19 % Disability: 36.6700 CATSIB Score (Max score 120 seconds): 92 Lower Extremity Functional Score: 27 TUG Test Time Seconds: 16.1 - Goals Goal 1:: LTG: Pt. to be I with gym program for strengthening and balance training exercises. Goal Time Frame: 4-6 Weeks Goal 2:: LTG: Pt. to have increase in BLE strength by 5# throughout. Goal Time Frame: 4-6 Weeks Goal 3:: LTG: Pt. to have improved sway index on balance machine during CATSIB testing to with in normal ranges indicating improved static stability. Goal Time Frame: 4-6 Weeks Goal 4:: LTG: Pt. to have normalized gait pattern without use of AD reducing risk for future falls. Goal Time Frame: 4-6 Weeks - Rehabilitation Potential Physical Therapy Diagnosis: Pt. has signs and symptoms consistent with L artificial knee joint with need for quad and hamstring strengthening. Pt. a need for strengthening, but with her reports of falls and with testing this date I would suggest some balance/vestibular training. I would like to progress her strengthening program to a gym program as tolerated. Rehabilitation Potential: Excellent - Anticipated Interventions Patient/Client Instruction: Educate patient on: Condition, Plan of Care, Risk Factors, Benefits of Fitness Program For the Purpose of:: To improve health and function, To foster healthy habits, To improve decision making, To facilitate caregiver knowledge, To improve self management, To prevent re-injury, To improve ability to perform tasks related to life management Therapeutic Exercise to Include: Strength training, Power training, Balance training, Coordination, Body mechanics, Postural training, Gait and locomotor training For the Purpose of:: To increase ROM, To improve nutrient delivery to tissue, To increase oxygenation perfusion, To improve muscle performance and motor function, To improve ability to perform ADL's, To improve gait and locomotor functions, To improve health of tissue, To decrease soft tissue restriction, To increase flexibility/ROM, To improve endurance, To improve balance Thank you for the opportunity to evaluate your patient. For Medicare and Medicare HMO plans, please review the plan of care and approve it. It will need to be FAXED BACK to us at [phone] for Medicare purposes. For Medicare only, by signing this I certify the plan of care. Please let me know if there are questions or concerns regarding this plan of care. Physician Signature: Date:
== END 2022-02-13 19:00 | disposition home or self-care (01) ==
LOC: PT 08:00
PROVIDERS: PCP Family Medicine; Referring Provider Family Medicine; Visit Provider Family Medicine
DX: Z47.1 Aftercare following joint replacement surgery (principal); Z96.652 Presence of left artificial knee joint; M17.12 Unilateral primary osteoarthritis, left knee
CPT/HCPCS: 97110; 97161

== ENCOUNTER 2024-06-09 09:00 | Outpatient (RCR) | payer MEDICARE, SELFPAY ==
--- NOTE | 2024-03-17 12:18 | HP.OTEVAL ---
Patient's Visit Information Visit Information Visit Information: SYED HARDWICK is a 69 year old F, referred to Occupational Therapy by Dr. Agapito Anderson MD, with a diagnosis of right thumb OA cmc. Date of Evaluation: 03/17/24 Occupational Therapist: ISAC Britt/Manuel, CHT Subjective Subjective: This 69-year-old female was seen for OT eval with dx of right-hand thumb pain. pt states about 5 months ago her granddaughter fell on her and her right thumb linn-extended. Pt states she had x-rays about a month after the injury. pt states no fx showed. pt states she found a brace about 3 months ago. states she does not always wear it. pt states she wears during the days about 50% of the time at night. pt is right-handed. pt states she does notices with the cold weather the right pain is worse. Pt states had her putting Voltari cream about 3x a day, but this was not helpful. 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 ADLs Kitchen: Peel fruits & vegetables, Open jars, Ziplock bags and Lift gallon of milk Comments: helps Household: Laundry Comments: use of left hand more Comments: pt states she lives with her in a one-story home entry 2 steps with one railing- pt states difficulty holding on railing pt ambulates with cane and thumb will hurts states and her both share cooking, cleaning and laundry. 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 with ADLs and IADLs by d.C. pt will demo an increase in right lateral and tripod pinch by 3# or greater to increase pts ind.with opening bottle tops and containers by d/c Goal:: pt will report no pain greater than 2/10 with use of right hand with ADLs and IADLs by d.c Goal:: Pt will demo understanding of joint protection and ergonomics when performing BADLs and IADLs by d/c Pt will demo understanding of adaptive Equipment use to decrease stress on joints to allow pt to perform BADSL and IADLS at HAMILTON level. Goal:: Pt will demo understanding of using supportive bracing 80% of workday/ADLS to decrease stress on tendon origin to allow healing and decrease pain by end of 2nd session. Rehabilitation General Assessment: pt demo with pain and weakness of right UE limiting pts ind with ADLs and IADLs. pt would benefit from skilled OT services 1-2x week for 4 weeks to ed. pt on dx, assist pt with understanding of using orthosis as well as joint protection and ad. eq. Today therapist ed. pt and gave handout information on joint protection itzel. bracing and isometric ex. pt demo understanding and agree to POC. Rehabilitation Potential: Good Anticipated Interventions Anticipated Interventions: Strengthening, Triggerpoint Release, Modalities, Orthoses, Joint Protection/Energy Conservation, Ergonomic Education, Fine Motor Coord/Raymond, Education re assistive Equipment and Education re Diagnosis Visit Plan Frequency: 1-2x /Week Duration: 4 Weeks TEXT: Thank you for the opportunity to evaluate your patient. For Medicare and Medicare HMO plans, please review the plan of care and approve it. It will need to be FAXED BACK to us at [phone] for Medicare purposes. Please let me know if there are questions or concerns regarding this plan of care. Physician Signature: Date:
--- NOTE | 2024-03-22 11:53 | HP.PTEVAL_ITS ---
Patient's Visit Information Visit Information Visit Information: SYED HARDWICK is a 69 year old F referred to Physical Therapy by Dr. Agapito Anderson MD with a diagnosis of Spinal stenosis. Date of Evaluation: 03/17/24 Physical Therapist: Ollie Kelly DPT Visit Plan Frequency: 2x /Week Duration: 4 Weeks Plan: 1) Neutral spine core strengthening, B hip and LE strengthening. 2) Balance training both on various levels of surface, but also with dynamic movements. Subjective Subjective: Pt. is here today for her initial evaluation with diagnosis of sp inal stenosis, but really having more issues with her balance. Pt. reports that her legs are not giving out on her, but is having more difficulty with correcting her balance once off balance. Pt. reports no N/T in her legs. Her back pain is better with off loading in swimming pool. Pt. reports feeling like her legs are not strong and getting up and out of chairs is difficulty. Pt. is having some more balance issues with ~6 falls in the past year. Pt. reports no defined reason for falling, but has occurred. She reports I just feel weaker. Pt. has not been doing much exercises for her back or legs. Her biggest concern is with holding her grand daughter. Pt. would like to be stronger, have reduced back pain and improve her balance. Pain Lumbar spine: Pain Intensity (Out of 10): 4 Pain Intensity Range: 2 and 9 Objective Objective: POSTURE: Pt. has general flexed posture, increased thoracic kyphosis. Pt. has wide DELIA in stance. PALPATION: Pt. has tenderness in BLEs, but not severe. Pt. has some some soreness in her lumbar spine as well. NEURO: Pt. has normal sensation in BLEs. Pt. has normal achilles DTR. ROM: Pt. has decent ROM in her B knees, no marked loss of TKE noted. LUMBAR SPINE: flexion min loss NE, ext mod loss increase NW, SB mod loss mild increase NW, rotation min loss bilat increase NW. Pt. has tightness in B HS as well. MMT: RLE: knee: ext 26.9#, flex: 25.6#; hip: flex 20.5#, abd 11.8# LLE: knee: ext 27.2#, flex: 22.6#, hip: flexion 24.9#, abd 12.5# Core strength: Pt. has poor core strength GAIT: Pt. ambulates with SPC, but does have increased lateral sway with her hips, She has marked decreased step length bilaterally. She will also has minimal arm swing with gait. STAIRS: step to pattern with 2 HR to complete. Balance/Special Test Scores Functional Gait Assessment Score: 15 % Disability: 50.0000 Oswestry Low Back Score: 25 30 Second Chair Rise Test Seconds: 9 Goals Goal 1:: LTG: Pt. to be I with HEP. Goal Time Frame: 4-6 Weeks Goal 2:: STG: Pt. to have decreased LBP with ADLS to 2/10 pain in her lumbar spine. Goal Time Frame: 2-4 Weeks Goal 3:: LTG: Pt. to have increased core and BLE strength by 10# in LEs and to fair of her core strength. Goal Time Frame: 4-6 Weeks Goal 4:: LTG: Pt. to have to have improved FGA to 22/30 indicating safe balance. Goal Time Frame: 4-6 Weeks Goal 5:: LTG: Pt. to be able to negotiate 1 flight of stairs with 1 HR with reciprocal pattern without issues Goal Time Frame: 4-6 Weeks Rehabilitation Potential Physical Therapy Diagnosis: Pt. has signs and symptoms consistent with Spinal stenosis, but is also having issues her balance. Pt. did have some marked core and BLE weakness. Pt. would benefit from PT to address the above limitations in order to progress back to all previous levels of function and progress stability in stance. Rehabilitation Potential: Excellent Anticipated Interventions Patient/Client Instruction: Educate patient on: Condition, Plan of Care, Risk Factors and Benefits of Fitness Program For the Purpose of:: To improve health and function, To foster healthy habits, To improve decision making, To facilitate caregiver knowledge, To improve self management, To prevent re-injury and To improve ability to perform tasks related to life management Therapeutic Exercise to Include: Strength training, Power training, Endurance training, Balance training, Postural training, Flexibilty training, Gait and locomotor training and Dynamic Lumbar Stabilization For the Purpose of:: To decrease pain, To increase ROM, To improve nutrient delivery to tissue, To improve ability of physical actions for home/community/work/leisure, To improve gait and locomotor functions, To improve health of tissue, To increase flexibility/ROM, To improve endurance and To improve balance Text: Thank you for the opportunity to evaluate your patient. For Medicare and Medicare HMO plans, please review the plan of care and approve it. It will need to be FAXED BACK to us at [phone] for Medicare purposes. For Medicare only, by signing this I certify the plan of care. Please let me know if there are questions or concerns regarding this plan of care. Physician Signature: Date:
--- NOTE | 2024-05-03 14:24 | HP.PTREVAL ---
Re-Evaluation Intro: Dr. Agapito Anderson MD, It has been my pleasure to treat SYED HARDWICK over the last 9 visits for Spinal stenosis. Please see the progress note below for an update on the physical therapy plan of care! Subjective Subjective: Pt. reports overall doing better. She reports still feeling a little bit off balance at times. Pt. reports still feeling like she needs to have her legs stronger. Pt. reports no recent falls. Objective Objective/Function: MMT: RLE: knee: ext 31.1#, flex: 27.2#; hip: flex 21.5#, abd 13.7# LLE: knee: ext 34.2#, flex: 25.6\2#, hip: flexion 27.2#, abd 14.9# GAIT: Pt. is able to ambulate without cane, but is gaurded. She has decreased step length and decreased tempo. Better with use of cane. STAIRS: pt. is able to complete with 2 HR with reciprocal pattern with ascending, but does do step to pattern with descend. Pt. is overall improving, but still has some issues with her balance and I would really like her to increase her BLE strength and reactive balance. Plan Plan Plan: I would like her to work on corrective balance both static and dynamic, work on unstable surfaces and stepping over objects. Add in gym exercises for core and BLE strengthening. Balance/Gait/Functional tests Balance/Special Test Scores Functional Gait Assessment Score: 16 % Disability: 46.6700 Oswestry Low Back Score: 14 TUG Test Time Seconds: 13.1 Tug Test: <20 sec.=mostly independent 30 Second Chair Rise Test Seconds: 9 Goals Goals Goal 1:: LTG: Pt. to be I with HEP. Goal Time Frame: 4-6 Weeks Goal Progress: Progressing Goal 2:: STG: Pt. to have decreased LBP with ADLS to 2/10 pain in her lumbar spine. Goal Time Frame: 2-4 Weeks Goal Progress: Goal Met Goal 3:: LTG: Pt. to have increased core and BLE strength by 10# in LEs and to fair of her core strength. Goal Time Frame: 4-6 Weeks Goal Progress: Progressing Goal 4:: LTG: Pt. to have to have improved FGA to 22/30 indicating safe balance. Goal Time Frame: 4-6 Weeks Goal Progress: Progressing Goal 5:: LTG: Pt. to be able to negotiate 1 flight of stairs with 1 HR with reciprocal pattern without issues Goal Time Frame: 4-6 Weeks Goal Progress: Progressing Anticipated Interventions Anticipated Interventions Patient/Client Instruction: Educate patient on: Condition, Plan of Care, Risk Factors and Benefits of Fitness Program For the Purpose of:: To improve health and function, To foster healthy habits, To improve decision making, To facilitate caregiver knowledge, To improve self management, To prevent re-injury and To improve ability to perform tasks related to life management Therapeutic Exercise to Include: Strength training, Power training, Endurance training, Balance training, Postural training, Flexibilty training, Gait and locomotor training and Dynamic Lumbar Stabilization For the Purpose of:: To decrease pain, To increase ROM, To improve nutrient delivery to tissue, To improve ability of physical actions for home/community/work/leisure, To improve gait and locomotor functions, To improve health of tissue, To increase flexibility/ROM, To improve endurance and To improve balance Re-Evaluation Ending Re-evaluation ending: Please do not hesitate to contact me at [phone] by phone or if you have questions or concerns regarding this new plan of care! Sincerely, Ollie Kelly DPT
--- NOTE | 2024-05-17 10:05 | HP.OTDCSUM_ITS ---
Discharge Summary D/C Summary: It has been my pleasure to treat SYED HARDWICK under orders from Dr. Agapito Anderson MD, for the diagnosis of right thumb OA cmc for a total of 9 visit(s). Please see the following information for a summary of their discharge status. Overall Improvement % Improvement: 40 Objective Objective/Function: Pt demo'd understanding of using supportive bracing 80% of workday/ADLS pt demo understanding of Joint protection itzel. pt is painful when brace is off therapist discussion with pt on returning to Dr for further tx. 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 with ADLs and IADLs by d.C. pt will demo an increase in right lateral and tripod pinch by 3# or greater to increase pts ind.with opening bottle tops and containers by d/c Goal:: pt will report no pain greater than 2/10 with use of right hand with ADLs and IADLs by d.c Goal:: Pt will demo understanding of joint protection and ergonomics when performing BADLs and IADLs by d/c Pt will demo understanding of adaptive Equipment use to decrease stress on joints to allow pt to perform BADSL and IADLS at HAMILTON level. Goal:: Pt will demo understanding of using supportive bracing 80% of workday/ADLS to decrease stress on tendon origin to allow healing and decrease pain by end of 2nd session. Plan Plan: return to dr. D/C Information d/c sentence: If there are questions or concerns regarding this patient's occupational therapy, please fell free to call me at [phone]. Thank you for the referral of this patient. Sincerely, Becca Hughes, OTR/L, CHT
--- NOTE | 2024-06-09 10:00 | HP.PTDCSUM ---
Discharge Summary D/C summary: It has been my pleasure to treat SYED HARDWICK referred by Dr. Agapito Anderson MD, with the diagnosis of Spinal stenosis for a total of 16 visit(s). Discharge Date: Please see the following information for a summary of their discharge status. Subjective Subjective: Pt. reports overall doing well. 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 Pt. reports being 80% better overall. Pt. repots being HEP compliant. Pain Lumbar spine: Pain Intensity (Out of 10): 0 Overall Improvement % Improvement: 80 Objective Objective/Function: MMT: Pt. has symmetrical strength between BLEs. Pt. reports no issues. She does have some difficulty with getting up from lower surfaces, but has improved. No falls reported gait: pt. is able to ambulate with good stability without use of AD. She does move getter with use of SPC. Pt. is I with gym program as well. I will be DC to gym program at this point in time. Goals Goal 1:: LTG: Pt. to be I with HEP. Goal Progress: Goal Met Goal 2:: STG: Pt. to have decreased LBP with ADLS to 2/10 pain in her lumbar spine. Goal Progress: Goal Met Goal 3:: LTG: Pt. to have increased core and BLE strength by 10# in LEs and to fair of her core strength. Goal Progress: Goal Met Goal 4:: LTG: Pt. to have to have improved FGA to 22/30 indicating safe balance. Goal Progress: Goal Met Goal 5:: LTG: Pt. to be able to negotiate 1 flight of stairs with 1 HR with reciprocal pattern without issues Goal Progress: Goal Met Plan Plan: DC to HEP. D/C Information d/c sentence: If there are questions or concerns regarding this patient's physical therapy, please feel free to call me at [phone]. Thank you for the referral of this patient. Sincerely, Ollie Jackson Sipos, DPT Balance/Gait/Functional tests Balance/Special Test Scores Functional Gait Assessment Score: 19 % Disability: 36.6700 Oswestry Low Back Score: 20 TUG Test Time Seconds: 12.14 Tug Test: <10 sec.=free mobile 30 Second Chair Rise Test Seconds: 13 Improvement % Improvement: 80
== END 2024-06-09 10:11 | disposition home or self-care (01) ==
LOC: PT 09:00
PROVIDERS: PCP Family Medicine; Referring Provider Family Medicine; Visit Provider Family Medicine
DX: M18.11 Unilateral primary osteoarthritis of first carpometacarpal joint, right hand (principal); M48.00 Spinal stenosis, site unspecified; M25.541 Pain in joints of right hand
CPT/HCPCS: 97035; 97110; 97161; 97166; 97530